=== PATIENT | male | born 1975 | race Caucasian/White ===

== ENCOUNTER 2020-09-17 02:22 | Emergency (ER) | payer OTHER ==
[~2020-09-17] VITALS: Ht 175.3 cm; Wt 145.1 kg
[2020-09-17] MEDS ORDERED: HYDROCODONE/APAP 10-325 MG TABLET PO ONE (02:45)
[2020-09-17] MEDS ORDERED: ONDANSETRON ODT 4 MG TAB.RAPDIS SL ONE (02:45)
--- NOTE | 2020-09-17 02:50 | NUR ---
Patient ambulatory to restroom with steady gait.
--- NOTE | 2020-09-17 02:53 | NUR ---
Patient refused medication at this time stating "I don't need it at this time."
[2020-09-17] MEDS ORDERED: ONDANSETRON ODT 4 MG TAB.RAPDIS ONE (02:55)
[2020-09-17] MEDS ORDERED: HYDROCODONE/APAP 10-325 MG TABLET ONE (02:55)
[2020-09-17] MEDS ORDERED: OXYC-128 PO (03:35)
[2020-09-17 03:50] VITALS: BP 120/90
--- NOTE | 2020-09-17 03:58 | NUR ---
Patient given written and verbal discharge instructions. Patient verbalizes understanding of instructions. Patient is ambulatory with steady gait. Refuses offer of skilled nursing placement. Patient given list of available shelters in surrounding area.
== END 2020-09-17 03:58 | disposition home or self-care (01) ==
LOC: ER 02:53
DX: M54.5 Low back pain (principal); M25.531 Pain in right wrist; Z59.0 Homelessness; E66.9 Obesity, unspecified; Z68.42 Body mass index [BMI] 45.0-49.9, adult; G89.4 Chronic pain syndrome; Z91.81 History of falling
CPT/HCPCS: 72100; 73110; A4663; Q0162